=== PATIENT | female | born 1965 | race Asian ===

== ENCOUNTER → 2017-01-07 | Day surgery (SDC) | payer OTHER ==
[2017-01-07] VITALS (8 sets, daily range): BP systolic 118–131; BP diastolic 70–84
[~2017-01-07] VITALS: Ht 157.5 cm; Wt 68.0 kg
[~2017-01-07] MED LIST: ADVIL PO; LR 1000ml ONE; Lidocaine 1% MPF 10mg/ml 5ml ONE; OMEPRAZOLE10 M1 ORAL; PROBIOTIC1 EAC5 PO; Propofol 10mg/ml 20ml IV ONE; TRAMADOL HCL50 MG ORAL
--- NOTE | 2017-01-07 07:48 | Short Stay Surgery H&P ---
History of Present Illness History of Present Illness Chief Complaint Abdominal pains, diarrhea and constipation RANJANA Jaeger is a 51 year old female who was admitted on for GERDS Patient History Allergies: Coded Allergies: BACITRACIN (Verified Allergy, Intermediate, rashes to face, 01/07/17) HYDROCODONE (Verified Allergy, Intermediate, itchy, 01/07/17) MORPHINE (Verified Allergy, Intermediate, itchy, 01/07/17) NEOMYCIN (Verified Allergy, Intermediate, rashes to face, 01/07/17) POLYMYXIN B (Verified Allergy, Intermediate, rashes to face, 01/07/17) TRAMADOL (Verified Allergy, Intermediate, itchy, 01/07/17) PAST MEDICAL HISTORY: (1) Carpal tunnel syndrome Past Surgeries: Social History: Review of Systems Cardiovascular: Reports: no symptoms Respiratory: Reports: no symptoms Skeletal: Reports: osteroarthritis Gastrointestinal: Reports: other Genitourinary: Reports: no symptoms Neurologic: Reports: no symptoms Endocrine: Reports: no symptoms Hematologic: Reports: no symptoms Physical Exam Skin: normal HENT: normal Heart: normal Lungs: normal Abdomen: normal Extremities: normal Genitourinary: normal Plan Plan of Care colonoscopy Preop Interventions None Summary of Findings See the report Final Diagnosis: Attestation Are the patient's medical conditions optimized for surgery? Attestation Response: yes KIKO SWAIN Jan 07, 2017 07:48
--- NOTE | 2017-01-07 07:49 | Pre-Procedure Note/Attestation ---
Pre-Procedure Note/Attestation Complete Prior to Procedure Planned Procedure: left Procedure Narrative: Endoscopic exam of the colon Indications for Procedure Pre-Operative Diagnosis: R/O colitis Attestation I attest that I discussed the nature of the procedure; its benefits; risks and complications; and alternatives (and the risks and benefits of such alternatives ), prior to the procedure, with the patient (or the patient's legal access representative). I attest that, if there was a reasonable possibility of needing a blood transfusion, the patient (or the patient's legal access representative) was given the [facility] standardized written summary, pursuant to the Brian Carl[place] Blood Safety Act ([place] Health and Safety Code # 1645, as amended). I attest that I re-evaluated the patient just prior to the surgery and that there has been no change in the patient's H&P, except as documented below: WILIAM,SAID Jan 07, 2017 07:49
--- NOTE | 2017-01-07 08:24 | Anethesia Preoperative Eval ---
Anesthesia Pre-op PMH/ROS General Date of Evaluation: Jan 07, 2017 Time of Evaluation: 08:22 Anesthesiologist: isai ASA Score: ASA 2 Mallampati Score Class I : Soft palate, uvula, fauces, pillars visible Class II: Soft palate, uvula, fauces visible Class III: Soft palate, base of uvula visible Class IV: Only hard plate visible Mallampati Classification: Class II Surgeon: cecilio Diagnosis: IBS Surgical Procedure: colonoscopy Anesthesia History: none Family History: no anesthesia problems Allergies: Coded Allergies: BACITRACIN (Verified Allergy, Intermediate, rashes to face, 01/07/17) HYDROCODONE (Verified Allergy, Intermediate, itchy, 01/07/17) MORPHINE (Verified Allergy, Intermediate, itchy, 01/07/17) NEOMYCIN (Verified Allergy, Intermediate, rashes to face, 01/07/17) POLYMYXIN B (Verified Allergy, Intermediate, rashes to face, 01/07/17) TRAMADOL (Verified Allergy, Intermediate, itchy, 01/07/17) Medications: see eMAR Past Medical History Cardiovascular: Denies: CAD, HTN, CT, arrhythmia, other, valve dz Pulmonary: Denies: COPD, OLIVIA, asthma, other Gastrointestinal/Genitourinary: Reports: GERD Neurologic/Psychiatric: Denies: CVA, TIA, dementia, depression/anxiety, other Endocrine: Denies: DM, hypothyroidism, other, steroids HEENT: Denies: [place] (L), [place] (R), cataract (L), cataract (R), glaucoma, other Hematology/Immune: Denies: DVT, anemia, bleeding disorder, other Musculoskeletal/Integumentary: Denies: DDD, DJD, OA, RA, edema, other Anesthesia Pre-op Phys. Exam Physician Exam Last Vital Signs Date Time Temp Pulse Resp B/P Pulse Ox O2 Delivery O2 Flow Rate FiO2 01/07/17 07:50 97.0 56 18 130/74 99 Room Air Constitutional: NAD Neurologic: CN 2-12 intact Cardiovascular: RRR Respiratory: CTA Gastrointestinal: S/NT/ND Airway Exam Mallampati Classification 2 Mallampati Score: Class II ROM: full Dentures: no lower, no upper Anesthesia Pre-op A/P Labs Urine Test Test 01/07/17 07:25 Urine HCG, Qualitative Pending Studies Pre-op Studies: EKG - SR Risk Assessment & Plan Plan: mac Status Change Before Surgery: No Pre-Antibiotics Drug: none DHRUV BLOUNT CRNA Jan 07, 2017 08:24
--- NOTE | 2017-01-07 08:27 | Endoscopy Procedure Note ---
Endoscopy Procedure Note Indication for Procedure: Abdominal pains, diarrhe and constipation Procedures Performed: colonoscopy - Extremely redundant colon otherwise total colonoscopy was normal with substandard colon prep. No polyps, colitis found. Specimen: none Pt Tolerated Procedure Well: Yes Estimated Blood Loss: none Anesthesiologist: Dr. Dixon Anesthesia: moderate sedation Medication Given: see anesthesia record Implant(s) used?: No 50 yrs or older w/o bx or poly: Yes 10yrs. F/U not recommended: Yes 10 yrs. F/U needed: Yes Med reason:<3 yrs.: System Reason:<3 yrs.: KIKO SWAIN Jan 07, 2017 08:27
--- NOTE | 2017-01-07 08:30 | Discharge Instructions ---
Discharge Instructions Discharge Instructions Follow up with: See the doctor in his office after 2 weeks. For Congestive Heart Failure Reminder Report to your physician any weight gain of 5 pounds or more in one week. WILIAM,KIKO Jan 07, 2017 08:30
--- NOTE | 2017-01-07 08:37 | Immediate Post-Op Evaluation ---
Immediate Post-Op Evalulation Immediate Post-Op Evalulation Procedure: colonoscopy Date of Evaluation: Jan 07, 2017 Time of Evaluation: 08:37 IV Fluids: 200 Blood Pressure Systolic: 119 Blood Pressure Diastolic: 73 Pulse Rate: 57 O2 Sat by Pulse Oximetry: 99 Nausea: No Vomiting: No Complications none Patient Status: awake, reacts, patent Hydration Status: adequate Drug: none DHRUV BLOUNT CRNA Jan 07, 2017 08:37
--- NOTE | 2017-01-07 08:58 | 48 Hour Post Anesthesia Eval ---
Post Anesthesia Evaluation Procedure: colonoscopy Date of Evaluation: Jan 07, 2017 Time of Evaluation: 08:58 Blood Pressure Systolic: 120 0: 78 Pulse Rate: 54 O2 Sat by Pulse Oximetry: 99 Airway: patent Nausea: No Vomiting: No Hydration Status: adequate Mental Status/LOC: patient returned to baseline Post-Anesthesia Complications: none Follow-up care needed: N/A DHRUV BLOUNT CRNA Jan 07, 2017 08:58
--- NOTE | 2017-01-07 15:19 | Procedure Note ---
DATE OF PROCEDURE: 01/07/2017 SURGEON: Norma Short M.D. REFERRING PHYSICIAN: Dr. Mora, name is not on the staff. PROCEDURE: Total colonoscopy. PREOPERATIVE DIAGNOSES: Abdominal pain, diarrhea, and constipation. POSTOPERATIVE DIAGNOSES: 1. Significantly redundant and twisted colon, otherwise, complete normal study up to the base of the cecum as examined. 2. Substandard colonic preparation. MEDICATION USED: Per Dr. Dixon. INSTRUMENT: GIF Olympus videocolonoscope. DESCRIPTION OF PROCEDURE: The patient after arriving in the endoscopy unit was told about risks and benefits of the procedure, which she accepted and signed the informed consent. At this time, she was put on the left lateral decubitus position. After adequate IV sedation, the scope was gently passed through the anal area and careful examination of this section did not reveal any major hemorrhoids or inflammatory process or bleeding colitis, etc. Subsequently, the scope was passed through significantly and very difficult, twisted left colon, which took significant amount of time with different maneuvers to be able to go through this area, and however, it did not reveal any particular abnormalities such as tumors, polyps, inflammatory process, ulcers, colitis, etc. Finally, the scope reached to the splenic flexure and from there, again in some twisted transverse colon reaching to the hepatic flexure and right colon all the way to the base of the cecum. Along the colon, there were small pieces of undigested food, particularly on the right side of the colon, however, after irrigation did not reveal any major pathology in the colon as I mentioned. After reaching to the base of the cecum within 8 minutes, the scope gradually was withdrawn and the examination did not reveal any other pathologies. The patient tolerated the procedure well and left the endoscopy room in good condition. Norma Short M.D. DR: DARCY JOB#: [id number] CC:
--- NOTE | 2017-01-07 15:59 | Pre-op HX & Phy Repo 2 SIG ---
DATE OF ADMISSION: 01/07/2017 REFERRING PHYSICIAN: Dr. Ravi. HISTORY OF PRESENT ILLNESS: The patient is a 51-year-old female, who is being seen prior to undergoing the procedure of colonoscopic examination for which she has been authorized to receive evaluation of her post work injury gastrointestinal conditions. The applicant basically has been suffering from symptoms of upper and lower GI tract presenting with heartburn, epigastric discomfort, and pain consistent with gastroesophageal reflux and as such is being treated with medications of antacids and PPIs. She also reported that she had gained 20 pounds subsequent to her work injury, however, she does suffer from generalized abdominal pain, which was mostly over the side and lower part along with the epigastric areas I mentioned. She also does have periodic constipation and diarrhea, but denies any major rectal bleeding. The patient reports that she has been treated with variety of medications including strong analgesics, to some of which she has had allergy and also nonsteroidal anti-inflammatory agents such as Advil that she still continues to take off and on regularly for the control of the pain in the body that she has suffered subsequent to work injury. There is no any major history of rectal bleeding, though she has noticed occasionally small amount of blood on the toilet paper, which is not significant. The applicant reported in the past that she underwent an upper gastrointestinal endoscopy, the result of which was not given to us and was not available to review. 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 She has also been followed with her primary caregiver at [facility] as well and has had history of Helicobacter pylori infection, which according to some other records reveal that she has been treated. PAST SURGICAL HISTORY: None. MEDICATIONS: Tramadol, hydrocodone, omeprazole, Advil, and bisacodyl. ALLERGIES: To some analgesics and pain medications. HABITS: She drinks occasionally wine and used to smoke cigarette, but has stopped at this point for some years. REVIEW OF SYSTEMS: Basically history of present illness. PHYSICAL EXAMINATION: GENERAL: An alert and oriented female, who does not seem to be in any acute distress, very pleasant. VITAL SIGNS: Stable. HEENT: Normocephalic. Pupils are equal in size and reactive to light and accommodation. Buccal cavity, tongue midline and well hydrated. No ulcers. NECK: Supple. No jugular venous distention, thyromegaly, or adenopathy. CHEST: Clear to auscultation and percussion. No rales or rhonchi. HEART: S1 and S2 normal. Regular rhythm. No gallops or murmur. ABDOMEN: Soft, but mildly tender all over the abdomen particularly over the epigastric area and sides of the abdomen, but there is no organomegaly. No masses noted. EXTREMITIES: Unremarkable. IMPRESSION AND PLAN: 1. Preliminary impression is generalized abdominal pain of uncertain etiology, rule out irritable bowel syndrome, rule out colitis. 2. Epigastric pain consistent with gastroesophageal reflux, rule out peptic ulcer disease secondary to side effects of nonsteroidal antiinflammatory drugs. 3. Intermittent diarrhea and constipation, mostly possibly related to underlying irritable bowel syndrome. 4. History of injury, work related. RECOMMENDATION: The applicant seems to be stable at this time to undergo the procedure of colonoscopic examination for which she has been authorized. She understands the risks and benefits and signed the consent. Said Yariel Short. DR: WILDA JOB#: [id number] CC:
== END | disposition home or self-care (01) ==
LOC: GAS 07:13
DX: R10.9 Unspecified abdominal pain (principal); R19.7 Diarrhea, unspecified; K59.00 Constipation, unspecified; Q43.8 Other specified congenital malformations of intestine; M19.90 Unspecified osteoarthritis, unspecified site; Z87.891 Personal history of nicotine dependence; Z88.3 Allergy status to other anti-infective agents; Z88.5 Allergy status to narcotic agent; Z88.6 Allergy status to analgesic agent
CPT/HCPCS: 45378; 81025; J2704; J7120; 94003; 94150